=== PATIENT | female | born 1955 | race Caucasian/White ===

== ENCOUNTER 2023-07-13 12:31 | Outpatient (CLI) | payer BC | END 2023-07-13 12:32 | disposition critical access hospital (66) | LOC: EMS 12:31 | DX: S50.311A Abrasion of right elbow, initial encounter (principal); W01.0XXA Fall on same level from slipping, tripping and stumbling without subsequent striking against object, initial encounter; Y92.009 Unspecified place in unspecified non-institutional (private) residence as the place of occurrence of the external cause | CPT/HCPCS: A0425; A0427 ==

== ENCOUNTER 2023-07-14 11:37 | Day surgery (SDC) | payer BC ==
[2023-07-14] MEDS: LACTATED RINGERS 1,000 ML IV ONE ×2 (11:39→15:15)
[2023-07-14] MEDS ORDERED: ceFAZolin 2 GM VIAL ONE (11:41)
[2023-07-14] MEDS ORDERED: HYDROmorphone 0.5 MG/0.5 ML SYRINGE IVP PRN (12:46)
[2023-07-14] MEDS ORDERED: ONDANSETRON 4 MG/2 ML VIAL IVP PRN (12:46)
[2023-07-14] MEDS ORDERED: ATROPINE ABBOJECT 1 MG/10 ML SYRINGE IVP PRN (12:46)
[2023-07-14] MEDS ORDERED: METOCLOPRAMIDE 10 MG/2 ML VIAL IVP PRN (12:46)
[2023-07-14] MEDS ORDERED: NALOXONE 0.4 MG/ML VIAL IVP PRN (12:46)
[2023-07-14] MEDS ORDERED: ePHEDrine 50 MG/ML VIAL IVP PRN (12:46)
[2023-07-14] MEDS ORDERED: MORPHINE 2 MG/ML CARPUJECT IVP PRN (12:46)
[2023-07-14] MEDS ORDERED: fentaNYL 100 MCG/2 ML VIAL IVP PRN (12:46)
--- NOTE | 2023-07-14 12:46 | ANESTHESIA ---
Pre-Anesthesia VS, & Labs - Diagnosis R elbow fx - Procedure ORIF R elbow Vital Signs: Temp Pulse Resp BP Pulse Ox O2 Flow Rate 36.2 C L 72 18 142/83 H 100 07/14/23 11:49 07/14/23 11:49 07/14/23 11:49 07/14/23 11:49 07/14/23 11:49 Height: 5 ft 4 in Weight (kg): 63.2 kg Body Mass Index: 23.9 BMI Classification: Normal - NPO >8 hours - Is Patient ?: No Home Medications and Allergies Home Medications: Ambulatory Orders Anastrozole 1 mg PO DAILY 07/14/23 Atorvastatin [Lipitor] 10 mg PO DAILY 07/14/23 estradioL vaginal [Estrace vaginal] 0.1 mg .ROUTE ONCE 07/14/23 hydroCHLOROthiazide [Hydrodiuril] 25 mg PO DAILY 07/14/23 traZODone [Desyrel] 100 mg PO DAILY 07/14/23 Anastrozole 1 mg PO DAILY 07/14/23 Atorvastatin [Lipitor] 10 mg PO DAILY 07/14/23 estradioL vaginal [Estrace vaginal] 0.1 mg .ROUTE ONCE 07/14/23 hydroCHLOROthiazide [Hydrodiuril] 25 mg PO DAILY 07/14/23 traZODone [Desyrel] 100 mg PO DAILY 07/14/23 Allergies/Adverse Reactions: Allergies Allergy/AdvReac Type Severity Reaction Status Date / Time codeine Allergy Unknown Verified 07/13/23 13:17 Anes History & Medical History - Anesthetic History Anesthesia Complications: reports: Post-Operative Nausea/Vomiting Family history of Anesthesia Complications: Denies Family history of Malignant Hyperthermia: Denies - Medical History Cardiovascular: reports: High cholesterol Pulmonary: reports: None Gastrointestinal: reports: None Urinary: reports: None Musculoskeletal: reports: None, Other Endocrine/Autoimmune: reports: None Skin: reports: None Smoking Status: Never smoker Psychosocial: reports: No issues indicated History of Cancer?: No - Surgical History Gynecologic: reports: Hysterectomy Orthopedic: reports: Rotator cuff repair Exam General: Alert, Oriented x3, Cooperative Dental: WNL Mouth Openin Fingerbreadth Neck Mobility: Normal Mallampati classification: I Thyromental Distance: 4-6 cm Respiratory: Lungs clear Cardiovascular: Regular rate Plan Anesthesia Type: General, Total IV, Supraclavicular Block Regional Block: Per Surgeon's request for Post Op pain control Consent for Procedure(s) Verified and Reviewed: Yes Code Status: Attempt Resuscitation ASA classification: 2-Mild systemic disease Is this case an emergency?: No
[2023-07-14] MEDS ORDERED: MIDAZOLAM 2 MG/2 ML VIAL ONE (12:53)
[2023-07-14] MEDS ORDERED: ROPIVACAINE 0.5% PF 20 ML VIAL ONE (12:54)
[2023-07-14] MEDS ORDERED: LIDOCAINE-PF 2% 10 ML AMP SUBQ ONE (12:54)
[2023-07-14] MEDS ORDERED: DEXAMETHASONE 4 MG/ML VIAL ONE (12:59)
[2023-07-14] MEDS ORDERED: BUPIVACAINE 0.5%-EPI 1:200000 PF 30 ML VIAL ONE (12:59)
[2023-07-14] MEDS ORDERED: LACTATED RINGERS 1,000 ML IV SCH (13:00)
[2023-07-14] MEDS: BUPIVACAINE 0.5%-EPI 1:200000 PF 30 ML VIAL SUBQ ONE (13:04)
[2023-07-14] MEDS ORDERED: PROPOFOL 500 MG/50 ML 500 MG/50 ML VIAL ONE (13:22)
--- NOTE | 2023-07-14 15:15 | OPERATIVE REPORT ---
Operative Report - General Procedure Date: 07/14/23 Planned Procedure: Open reduction and internal fixation of right olecranon fracture using tension band wire technique Pre-Op Diagnosis: Displaced intra-articular fracture of the right olecranon Procedure Performed: Open reduction and internal fixation of right olecranon fracture using tension band wire technique Post Op Diagnosis: Same - Procedure Note Primary Surgeon: Paco Vazquez MD Anesthesia Provider: Renay Willis CRNA Anesthesia Technique: Regional block IV Fluids (mL): 1,100 Estimated Blood Loss (mL): 100 Complications: None - Other Other Information/Narrative: The patient was taken to the operating room in the afternoon of the first surgery where she had a regional peripheral nerve block placed to the right upper extremity. She was then taken to the operating room and placed in supine position. We then scrubbed the palm of her hand to remove the gravel that was embedded in the superficially palmar area of the hand. We then removed her lo ng-arm splint and placed the arm pneumatic tourniquet on the upper arm. We then prepped and draped the right arm free in the usual fashion for our procedure. We then elevated the right upper extremity for a minute before we inflated the arm pneumatic tourniquet to 250 mmHg pressure. With the elbow in the flexed position we then did a S shaped curve overlying the olecranon. This then allowed good visualization of our distracted olecranon fracture. Curette used to remove the fracture hematoma from the 2 fracture fragments. Then with gentle manipulation with a towel clip reduction clamp were able to reduce the olecranon fracture nearly anatomically. This was held in place with provisional fixation using a towel clip reduction clamp. Fluoroscopic views and AP and lateral projection showed good reduction of our fracture and a good approximation of the articulating surface of the olecranon on the lateral view. Satisfied with this we then proceeded to insert to longitudinal 0.06 2 inch smooth Lamar wire in the longitudinal faction across the olecranon fracture and into the proximal portion of the ulnar shaft. Fluoroscopic view showed that the pins are in good position and remain within the osseous confines of the ulna. Next we then drilled a transverse hole in the proximal ulnar shaft approximately 3 inches from the tip of the olecranon. As we maite the smooth Lamar wire that was made used to make the hole in the proximal ulna we followed with a #18 stainless steel wire. Stainless steel wire was then put into a oigcku-yu-mbkvu fashion around around the inserted K wires. We symmetrically tighten this cistwa-iw-nybqf stainless steel wire loop using knots on either side of the tqmtlk-ef-mhzsi loop. Fluoroscopic views were then obtained in AP and lateral projection which showed again a good reduction of our fracture and satisfactory position of the articulating surface of the fracture fragment on the lateral view. Satisfied with this we then tightened the gxfhoi-yk-vsdnn wire knots to obtain good compression of the fracture. We then cut the the wire loops leaving about two thirds of the not exposed. Finally we bent the Lamar wires using a Andersen tip to bend this at nearly 90 degrees and cut the ends of the K wires proud as well. We then rotated the K wires so that they were up against the posterior proximal olecranon. Also we bent the exposed knots on the nenspp-nl-iulyc wire into the olecranon as well. We irrigated the wound out thoroughly with saline. Closed the wound in layers using buried simple subcuticular stitches of 3-0 Vicryl to close the subcutaneous layer. Skin cristo used approximate the skin edge. We then washed the wound and applied Xeroform gauze 4 x 4's and sterile web roll. A long-arm posterior splint was t hen applied to the extremity after we released the arm pneumatic tourniquet. Patient then sent to recovery room in satisfactory condition. Estimated blood loss 100 mL Replacement: 1100 cc crystalloid Intraoperative complications: None Plan: Patient will need to be discharged home from ambulatory surgery later today. She will stay in a long-arm posterior splint for about 3 weeks time. She will come back to orthopedic clinic in about 3 to [address] Vazquez for new x-rays out of her long-arm posterior splint and removal of her skin cristo then.
[2023-07-14] MEDS ORDERED: HYDROcod/ACETAM 10 MG/325 MG TABLET PO PRN (15:23)
[2023-07-14] MEDS ORDERED: HYDROcod/ACETAM 5/325 MG TABLET PO PRN (15:23)
[2023-07-14] MEDS ORDERED: KETOROLAC 15 MG/ML VIAL IVP STA (15:23)
[2023-07-14] MEDS ORDERED: oxyCODONE 5 MG TABLET PO PRN (15:23)
[2023-07-14 15:35] VITALS: O2SAT 96
[2023-07-14 15:54] VITALS: BP 140/85
--- NOTE | 2023-07-14 16:50 | ANESTHESIA POST OP EVALUATION ---
Anesthesia Post Eval - Post Anesthesia Eval Vitals: Last Vital Signs Temp 36.3 C L 07/14/23 15:35 Pulse 78 07/14/23 15:35 Resp 16 07/14/23 15:35 BP 140/85 H 07/14/23 15:35 Pulse Ox 96 07/14/23 15:35 O2 Flow Rate CV Function Including HR & BP: Stable Pain Control: Satisfactory Nausea & Vomiting: Negative Mental Status: Baseline Respiratory Status: Airway Patent Hydration Status: Satisfactory Anesthesia Complications: None
--- NOTE | 2023-07-14 20:19 | XRAY Report ---
PROCEDURE: OR C-Arm Procedure INDICATIONS: ORIF R OLECRANON FLUORO TIME: 000.2 TECHNIQUE: 2 fluoroscopic views of the right elbow. COMPARISON: Right elbow radiographs 07/13/2023. FINDINGS: 2 fluoroscopic views of the right elbow. There is interval pinning with cerclage wire of the olecrano n fracture. There is improved alignment. IMPRESSION: Intraoperative guidance provided. Reviewed by: Gary Ko MD on 07/14/2023 8:17 PM PST Approved by: Gary Ko MD on 07/14/2023 8:17 PM PST Station ID: [id number]
== END 2023-07-14 11:38 | disposition home or self-care (01) ==
LOC: SDS 11:37
PROVIDERS: ATTEND Orthopaedic Surgery
DX: S52.031A Displaced fracture of olecranon process with intraarticular extension of right ulna, initial encounter for closed fracture (principal)
CPT/HCPCS: 24685; J2795; J7120

== ENCOUNTER 2023-07-19 10:26 | Emergency (ER) | payer BC ==
[2023-07-19 10:49] VITALS: O2SAT 100
--- NOTE | 2023-07-19 11:09 | ED Physician Documentation ---
History of Present Illness - Stated complaint Stated Complaint: RT ELBOW PX - Chief complaint Chief Complaint: Trauma Ext - Additonal information Additional information: Patient 68-year-old female presenting with right elbow pain. Recent surgical fixation, this morning slipped and fell onto her right elbow. Reports pain 2 out of 10 at this time. States pain is not significantly worse than it was postoperatively. Denies numbness or loss of sensation in the affected extremity. Review of Systems Constitutional: denies: Fever Eyes: denies: Loss of vision Ears: denies: Loss of hearing Nose: denies: Rhinorrhea / runny nose Throat: denies: Dental pain / toothache Cardiac: denies: Chest pain / pressure Respiratory: denies: Dyspnea GI: denies: Abdominal Pain : denies: Dysuria PD PAST MEDICAL HISTORY - Past Medical History Cardiovascular: High cholesterol Respiratory: None Endocrine/Autoimmune: None GI: None : None HEENT: None Psych: None Musculoskeletal: None, Other Derm: None - Past Surgical History Past Surgical History: Yes Ortho: Rotator cuff repair /DISEASE AND INSECT CONTROL BOSS: Hysterectomy - Present Medications Home Medications: Ambulatory Orders Medication Instructions Recorded Confirmed Anastrozole 1 mg PO DAILY 07/14/23 07/19/23 Atorvastatin [Lipitor] 10 mg PO DAILY 07/14/23 07/19/23 estradioL vaginal [Estrace vaginal] 0.1 mg .ROUTE ONCE 07/14/23 07/19/23 hydroCHLOROthiazide [Hydrodiuril] 25 mg PO DAILY 07/14/23 07/19/23 traZODone [Desyrel] 100 mg PO DAILY 07/14/23 07/19/23 - Allergies Allergies/Adverse Reactions: Allergies Allergy/AdvReac Type Severity Reaction Status Date / Time No Known Drug Allergies Allergy Verified 07/19/23 10:51 - Social History Does the pt smoke?: No Smoking Status: Never smoker PD ED PE NORMAL - Vitals Vital signs reviewed: Yes - General General: Alert and oriented X 3 - Respiratory Respiratory: No respiratory distress - Extremities Extremities: Other (Right upper extremity in splint and swelling. Radial and ulnar pulses palpable. Normal capillary refill in the affected appendage.) Results - Vitals Vitals: Vital Signs - 24 hr 07/19/23 07/19/23 10:32 11:36 Temperature 36.8 C Heart Rate 90 88 Respiratory 16 16 Rate Blood Pressure 140/82 H 136/78 H O2 Saturation 100 100 Oxygen O2 Source Room air PD Medical Decision Making - ED course Complexity details: reviewed results, re-evaluated patient, d/w patient ED course: Patient 68-year-old female presenting after falling on her right elbow. This is a setting of recent ORIF surgery. No significant increase in pain., No indications neurovascular compromise. X-rays demonstrate findings consistent with postsurgical changes without acute abnormality. Will discharge for follow- up with her orthopedist. Clear return precautions given. Departure - Departure Disposition: 01 Home, Self Care Clinical Impression: Elbow injury Comments: Thank you for allowing us to care for you today at [facility]. The x-rays taken today did not show any worsening fracture, displacement or other changes after your recent open reduction and internal fixation of your right elbow. Please follow-up with your orthopedic surgeon when able. If it anytime you have new or worsening symptoms please not hesitate to return. Forms: PCP List Discharge Date/Time: 07/19/23 11:36
--- NOTE | 2023-07-19 11:23 | XRAY Report ---
PROCEDURE: Elbow 3+V RT INDICATIONS: Fall TECHNIQUE: 3 views of the elbow were acquired. COMPARISON: 07/14/2023. FINDINGS: Bones: Status post ORIF for fixation of a distracted olecranon fracture. There is improved alignment with persistent distraction.. No suspicious bony lesions. Soft tissues: Overlying postsurgical changes are noted. IMPRESSION: Improved alignment status post ORIF of a distracted olecranon fracture with persistent distraction. Reviewed by: Jun Garcia MD on 07/19/2023 11:21 AM PST Approved by: Jun Garcia MD on 07/19/2023 11:21 AM PST Station ID: [id number]
[2023-07-19 11:43] VITALS: BP 136/78
== END 2023-07-19 11:36 | disposition home or self-care (01) ==
LOC: ED 10:26
DX: S59.901A Unspecified injury of right elbow, initial encounter (principal); W01.0XXA Fall on same level from slipping, tripping and stumbling without subsequent striking against object, initial encounter; E78.00 Pure hypercholesterolemia, unspecified; Z79.899 Other long term (current) drug therapy
CPT/HCPCS: 99283

== ENCOUNTER 2023-07-24 08:00 | Outpatient (CLI) | payer BC ==
--- NOTE | 2023-07-24 14:22 | XRAY Report ---
PROCEDURE: Elbow 3 View RT INDICATIONS: RIGHT ELBOW ORIF TECHNIQUE: 3 views of the elbow were acquired. COMPARISON: 3 views of the right elbow dated 07/19/2023. FINDINGS: Bones: ORIF of the comminuted proximal ulnar fracture is redemonstrated. Fracture fragments and K wi res are in unchanged anatomic alignment. No callus yet visualized. Soft tissues: There is a small elbow effusion. No suspicious soft tissue calcifications or masses. IMPRESSION: Stable postoperative change. Reviewed by: Mari Guillen MD on 07/24/2023 2:20 PM PDT Approved by: Mari Guillen MD on 07/24/2023 2:20 PM PDT Station ID: [id number]
== END 2023-07-24 23:59 | disposition home or self-care (01) ==
LOC: DI.WOS 08:00
PROVIDERS: ATTEND Orthopaedic Surgery
DX: S52.031A Displaced fracture of olecranon process with intraarticular extension of right ulna, initial encounter for closed fracture (principal)

== ENCOUNTER 2023-07-31 08:00 | Outpatient (CLI) | payer BC ==
--- NOTE | 2023-07-31 17:35 | XRAY Report ---
PROCEDURE: Elbow 3 View RT INDICATIONS: RIGHT ELBOW FRACTURE TECHNIQUE: 4 views of the elbow were acquired. COMPARISON: X-ray elbow dated 07/24/2023. FINDINGS: Bones: Minimal interval callus formation is seen around the comminuted proximal ulnar fracture remain s. K wires are again seen with no perihardware lucency. Surgical clips also project over the elbow. Soft tissues: Marked adjacent soft tissue swelling is present. Note is made of displacement of the an terior and posterior fat pads indicating fracture of the elbow. IMPRESSION: Comminuted proximal ulnar fracture with slight interval callus formation Reviewed by: Guanako Allen MD on 07/31/2023 5:34 PM PDT Approved by: Guanako Allen MD on 07/31/2023 5:34 PM PDT Station ID: [id number]
== END 2023-07-31 23:59 | disposition home or self-care (01) ==
LOC: DI.WOS 08:00
PROVIDERS: ATTEND Orthopaedic Surgery
DX: S52.031D Displaced fracture of olecranon process with intraarticular extension of right ulna, subsequent encounter for closed fracture with routine healing (principal)